=== PATIENT | female | born 2000 | race Caucasian/White ===

== ENCOUNTER 2023-01-09 08:48 | Emergency (ER) | payer BC ==
[2023-01-09 09:28] LABS: #Basophils 0.1 10x3/uL (0.0-0.2); #Eosinphils 0.4 10x3/uL (0.0-0.5); #Monocytes 0.5 10x3/uL (0.0-1.1); #Neutrophils 6.7 10x3/uL (1.5-8.4); %Basophils 0.6 % (0.0-2.0); %Eosinophils 4.5 % (0.0-6.0); %Lymphocytes 20.3 % (18.0-47.0); %Monocytes 5.3 % (0.0-10.0); Hemoglobin 11.9 g/dL (12.0-15.5); Mean Corpuscular HGB CONC 34.6 g/dL (32.0-36.0); Mean Corpuscular Hemoglobin 29.8 pg (27.0-33.0); Mean Platelet Volume 8.9 fl (7.4-10.4); Platelet Count 316 10x3/uL (150-450); RBC Distribution Width 12.1 % (11.5-14.5); White Blood Cell (WBC) Count 9.8 10x3/uL (3.5-10.5)
[2023-01-09 09:49] LABS: Acetaminophen Less than 10.0 mcg/mL (10.0-30.0); Alcohol Less than 10 mg/dL (Less than 10); Salicylate Less than 8.0 mg/dL (15.0-30.0)
[2023-01-09 09:51] LABS: ALT (SGPT) 28 U/L (8-55); AST (SGOT) 18 U/L (5-34); Albumin 4.4 g/dL (3.5-5.0); Alkaline Phosphatase 57 U/L (40-110); Anion Gap 13 mmol/L (10-20); BUN (Urea Nitrogen) 12 mg/dL (7.0-18.7); Bilirubin, Total 0.2 mg/dL (0.2-1.2); CK (CPK) 62 U/L (29-168); Calc. Creatinine Clearance 0 mL/min (70-130); Carbon Dioxide 22 mmol/L (22-29); Chloride 106 mmol/L (98-107); Estimated GFR 108; Glucose 94 mg/dL (70-105); Potassium 3.9 mmol/L (3.5-5.1); Protein, Total 7.4 g/dL (6.0-8.3); Sodium 137 mmol/L (136-145)
[2023-01-09 10:04] LABS: Bilirubin Neg (Negative); Blood, Urine 10 (Negative); Clarity Slightly Cloudy (Clear); Glucose, Urine (Dipstick) Normal (Negative); Ketone, Urine Negative (Negative); Leukocyte 25 (Negative); Nitrite Negative (Negative); Protein, Urine (Dipstick) Negative (Neg-Trace); Specific Gravity, Urine 1.025 (1.005-1.030); Urobilinogen Normal mg/dL (Less than 2)
[2023-01-09 10:06] LABS: Pregnancy Test - Urine (BHCG) Negative (Negative); Pregu Control Background? CLEAR/WHITE (CLR/WHITE); Pregu Control Bar Appear? YES (CONTROL BAR); Specific Gravity 1.025 (1.002-1.036)
[2023-01-09 10:12] LABS: Amphetamine Not Detected (NotDetected); Barbiturates Screen Not Detected (NotDetected); Benzodiazepine Screen Not Detected (NotDetected); Cocaine Metabolite Screen Not Detected (NotDetected); Methadone Not Detected (NotDetected); Methamphetamine Not Detected (NotDetected); Opiate Screen Not Detected (NotDetected); Oxycodone Screen Not Detected (NotDetected); Phencyclidine (PCP) Not Detected (NotDetected); THC/Cannabinoid Screen Detected (NotDetected); Tricyclic Screen Not Detected (NotDetected)
[2023-01-09 10:19] LABS: Bacteria/HPF 1+ HPF (None Seen); Mucous/LPF 2+ LPF (<2+); RBC/HPF 0-3 HPF (0-3)
== END 2023-01-09 13:47 | disposition home or self-care (01) ==
LOC: CSHERS 08:48
DX: F32.A Depression, unspecified (principal)
CPT/HCPCS: 80053; 80306; 80307; 81003; 81015; 81025; 82550; 84443; 85025; 99285